=== PATIENT | female | born 1945 | race Caucasian/White ===

== ENCOUNTER 2017-12-23 11:50 | Emergency (ER) | payer MEDICARE, OTHER ==
[2017-12-23 12:10] VITALS: BP 135/78
--- NOTE | 2017-12-23 12:50 | XRAY Report ---
EXAM: RIGHT KNEE RADIOGRAPHY EXAM DATE: 12/23/2017 12:22 PM. CLINICAL HISTORY: Fall, right knee pain, swelling, ecchymosis. COMPARISON: None. TECHNIQUE: 4 views. FINDINGS: Bones: Oblique lucency through the lower portion of the patella. No other osseous abnormalities. Joints: Large right knee effusion. Mild narrowing of the medial and patellofemoral compartment. Soft Tissues: Soft tissue swelling anterior to the patella. IMPRESSION: 1. Oblique incomplete lucency involving the inferior right patella concerning for nondisplaced fractu re. Consider further detail with CT. 2. Large right knee effusion. 3. Prepatellar soft tissue edema. [facility] Referring Provider Line: [phone] SITE ID: [id number]
--- NOTE | 2017-12-23 13:02 | ED Physician Documentation ---
PD HPI LOWER EXT INJURY - Stated complaint Stated Complaint: GLF - Chief complaint Chief Complaint: Ext Problem - History obtained from History obtained from: Patient - History of Present Illness PD HPI LOW EXT INJURY LOCATION: Right, Knee Type of injury: Fall Where injury occurred: Home Timing - onset: Today (She was feeding a stray cat and tripped and fell forward onto her knee. No other significant injuries. She is unable to walk or bear weight and has anterior right knee pain. She declines pain medication on initial evaluation.) Review of Systems Ears: reports: Reviewed and negative Nose: reports: Reviewed and negative Cardiac: reports: Reviewed and negative Respiratory: reports: Reviewed and negative PD PAST MEDICAL HISTORY - Past Medical History Cardiovascular: Hypertension - Past Surgical History Past Surgical History: Yes General: Appendectomy HEENT: Cataracts - Present Medications Home Medications: Ambulatory Orders Medication Instructions Recorded Confirmed Lisinopril 40 mg PO DAILY 07/20/15 07/20/15 Metoprolol Tartrate 100 mg PO DAILY 07/20/15 07/20/15 amLODIPine [Norvasc] 5 mg PO DAILY 07/20/15 07/20/15 - Allergies Allergies/Adverse Reactions: Allergies Allergy/AdvReac Type Severity Reaction Status Date / Time No Known Drug Allergies Allergy Verified 07/20/15 15:26 - Social History Does the pt smoke?: No Smoking Status: Never smoker Does the pt drink ETOH?: No Does the pt have substance abuse?: No - Immunizations Immunizations are current?: No - POLST Patient has POLST: No PD ED PE NORMAL - Vitals Vital signs reviewed: Yes - General General: Alert and oriented X 3, No acute distress - HEENT HEENT: PERRL, EOMI - Neck Neck: Supple, no meningeal sign, No bony TTP - Extremities Extremities: Other (There is a large ecchymosis over the anterior right knee with tenderness and swelling. She is able to fully extend the knee with good strength so the quadricep function is normal.) - Neuro Neuro: Alert and oriented X 3, Normal speech - Psych Psych: Normal mood, Normal affect Results - Vitals Vitals: Vital Signs - 24 hr 12/23/17 12:05 Temperature 36.5 C Heart Rate 70 Respiratory 16 Rate Blood Pressure 135/78 H O2 Saturation 97 Oxygen O2 Source Room air - Rads (name of study) R knee 4v Radiology: EMP read contemporaneously (There is an oblique incomplete lucency involving the inferior right patella concerning for a nondisplaced fracture and a large knee effusion and prepatellar soft tissue edema.) CT RLE Knee Radiology: EMP read contemporaneously (Nondisplaced fracture of the inferior patellar with moderate effusion and hematoma.) Departure - Departure Disposition: 01 Home, Self Care Clinical Impression: Right patella fracture Qualifiers: Encounter type: initial encounter Fracture type: closed Fracture morphology: transverse Fracture alignment: nondisplaced Qualified Code(s): S82.034A - Nondisplaced transverse fracture of right patella, initial encounter for closed fracture Condition: Good Record reviewed to determine appropriate education?: Yes Instructions: ED Fx Patella Comments: Wear the splint at all times until advised it is safe to discontinue this by the orthopedic physician. Call tomorrow for an appointment. Return if worse. Tylenol as needed for pain. Your blood pressure was elevated today on check into the emergency department. This does not mean that you have hypertension, it is a common phenomenon to come to the emergency department and have elevated blood pressure. I recommend that you see your primary care physician within the week to have it rechecked when you are feeling better.
--- NOTE | 2017-12-23 14:09 | CT Preliminary Report ---
Exam: CT LOWER EXTREMITY RIGHT W/O IMPRESSION: 1. Nondisplaced fracture of the inferior patella. 2. Moderate knee effusion. 3. Prepatellar hemorrhage/hematoma. [facility] SITE ID: [id number]
--- NOTE | 2017-12-23 14:09 | CT Report ---
EXAM: RIGHT HIP CT WITHOUT CONTRAST EXAM DATE: 12/23/2017 01:41 PM. CLINICAL HISTORY: Fall, knee injury COMPARISON: 12/23/2017 radiograph. TECHNIQUE: Thin-section axial images were acquired of the hip without contrast. Post-processing: Nicci nal and sagittal reformats. Other: None. In accordance with CT protocol optimization, one or more of the following dose reduction techniques w ere utilized for this exam: automated exposure control, adjustment of mA and/or KV based on patient s ize, or use of iterative reconstructive technique. FINDINGS: Bones: The inferior patella has a nondisplaced fracture both immediately and laterally. The fracture involves roughly the inferior 6 mm of the bone on both sides. Joints: A moderate knee effusion is present. Musculature: Normal. No fatty atrophy. Other: Arterial calcifications indicate atherosclerosis. Prepatellar hemorrhage is seen and there is a more concentrated hematoma in the medial side of the knee that measures 1.7 x 2.4 x 2.0 cm. IMPRESSION: 1. Nondisplaced fracture of the inferior patella. 2. Moderate knee effusion. 3. Prepatellar hemorrhage/hematoma. [facility] Referring Provider Line: [phone] SITE ID: [id number]
== END 2017-12-23 14:22 | disposition home or self-care (01) ==
LOC: ED 11:50
DX: S82.034A Nondisplaced transverse fracture of right patella, initial encounter for closed fracture (principal); M25.461 Effusion, right knee; W01.0XXA Fall on same level from slipping, tripping and stumbling without subsequent striking against object, initial encounter; Y92.009 Unspecified place in unspecified non-institutional (private) residence as the place of occurrence of the external cause; I10 Essential (primary) hypertension
CPT/HCPCS: 29530; 99282; 99283

== ENCOUNTER 2021-09-23 09:22 | Outpatient (CLI) | payer MEDICARE, OTHER ==
--- NOTE | 2021-10-02 07:03 | Mammography Report ---
BILATERAL DIGITAL SCREENING MAMMOGRAM 3D/2D: 09/23/2021 CLINICAL: Routine screening. Comparison is made to exams dated: 05/26/2019 mammogram, 05/25/2018 ultrasound, 05/25/2018 mammogram , 04/27/2018 mammogram, 01/11/2015 mammogram, and 09/22/2011 mammogram - [facility]. The tissue of both breasts is heterogeneously dense. This may lower the sensitivity of mammography. No significant masses, calcifications, or other findings are seen in either breast. There has been no significant interval change. IMPRESSION: NEGATIVE There is no mammographic evidence of malignancy. A 1 year screening mammogram is recommended. This exam was interpreted at Station ID: [id number]. NOTE: For mammograms, a report in lay terms will be sent to the patient. Approximately 15% of breast malignancies will not be visualized mammographically. In the management of a palpable breast mass, a negative mammogram must not discourage biopsy of a clinically suspicious lesion. Electronically Signed By: Blair Smith acr/penrad:10/01/2021 08:49:32 ACR BI-RADS Category 1: Negative [id number] PARENCHYMAL PATTERN: (D) - The breast(s) demonstrate(s) heterogeneously dense fibroglandular parlazarus bo. BI-RADS CATEGORY: (1) - 1 RECOMMENDATION: (ANNUAL) - Recommend routine annual screening mammography. [id number] 1 year screening LATERALITY: (B)
== END 2021-09-23 09:23 | disposition home or self-care (01) ==
LOC: DI.N 09:22
DX: Z12.31 Encounter for screening mammogram for malignant neoplasm of breast (principal)

== ENCOUNTER 2022-10-31 07:58 | Outpatient (CLI) | payer MEDICARE, OTHER ==
--- NOTE | 2022-10-31 10:19 | DEXA Report ---
PROCEDURE: Dexa Spine and/or Hip INDICATIONS: POSTMENOPAUSAL TECHNIQUE: Dual energy x-ray absorptiometry (DXA) was performed on a [employer] System. Regions measur ed are the AP Spine, femoral neck, and if needed forearm. COMPARISON: None. FINDINGS: Lumbar Spine: Bone Mineral Density 1.273 g/cm/cm,T score 0.8, normal Right Femoral Neck: Bone Mineral Density 0.873 g/cm/cm, T score -1.2, osteopenia Right Hip: Bone Mineral Density 0.749 g/cm/cm,T score -2.0, osteopenia (T score greater or equal to -1.0: NORMAL) (T score from -1.1 to -2.4: OSTEOPENIA) (T score less than or equal to -2.5 to: OSTEOPOROSIS) Impression: Bone mineral density within the osteopenia range at the right hip and right femoral neck. Patients with diagnosis of osteoporosis or osteopenia should have regular bone mineral density assess ment. For those eligible for Medicare, routine testing is allowed once every 2 years. Testing frequ ency can be increased for patients who have rapidly progressing disease or for those who are receivin g medical therapy to restore bone mass. Reviewed by: Kan Kim MD on 10/31/2022 10:18 AM PDT Approved by: Kan Kim MD on 10/31/2022 10:18 AM PDT Station ID: [id number]
== END 2022-10-31 07:59 | disposition home or self-care (01) ==
LOC: DI 07:58
PROVIDERS: ATTEND Internal Medicine
DX: M85.89 Other specified disorders of bone density and structure, multiple sites (principal); Z78.0 Asymptomatic menopausal state

== ENCOUNTER 2023-12-23 07:15 | Outpatient (CLI) | payer MEDICARE, OTHER ==
[2023-12-23 12:29] LABS: BASOPHILS # (AUTO) 0.1 10^3/uL (0.0-0.1); BASOPHILS % (AUTO) 1.1 %; EOSINOPHILS # (AUTO) 0.2 10^3/uL (0.0-0.7); EOSINOPHILS % (AUTO) 3.5 %; HCT - HEMATOCRIT 36.4 % (37.0-47.0); HGB - HEMOGLOBIN 11.7 g/dL (12.0-16.0); LYMPHOCYTES % (AUTO) 17.7 %; MEAN CORPUSCULAR HEMOGLOBIN 29.5 pg (27.0-31.0); MEAN CORPUSCULAR HGB CONC 32.1 g/dL (32.0-36.0); MEAN CORPUSCULAR VOLUME 91.9 fL (81.0-99.0); MEAN PLATELET VOLUME 11.7 fL (7.9-10.8); MONOCYTES # (AUTO) 0.5 10^3/uL (0.0-1.0); MONOCYTES % (AUTO) 8.9 %; NEUTROPHILS # (AUTO) 3.9 10^3/uL (1.5-6.6); NEUTROPHILS % (AUTO) 68.4 %; PLT - PLATELET COUNT 238 10^3/uL (130-450); RED BLOOD COUNT 3.96 10^6/uL (4.20-5.40); RED CELL DISTRIBUTION WIDTH 14.1 % (12.0-15.0); WHITE BLOOD COUNT 5.7 x10^3/uL (4.8-10.8)
[2023-12-23 12:53] LABS: ALBUMIN 4.3 g/dL (3.2-5.5); ALBUMIN/GLOBULIN RATIO 1.3 (1.0-2.2); BILIRUBIN,TOTAL 0.5 mg/dL (0.2-1.0); CALCIUM 10.1 mg/dL (8.5-10.3); POTASSIUM 3.6 mmol/L (3.5-4.5); TOTAL PROTEIN 7.5 g/dL (6.4-8.9)
== END 2023-12-23 07:30 | disposition home or self-care (01) ==
LOC: LAB.N 07:15
PROVIDERS: ATTEND Physician Assistant Medical
DX: R10.32 Left lower quadrant pain (principal)
CPT/HCPCS: 36415; 80053; 83690; 85025; 87086

== ENCOUNTER 2023-12-23 07:30 | Outpatient (CLI) | payer MEDICARE, OTHER ==
--- NOTE | 2023-12-24 07:40 | XRAY Report ---
PROCEDURE: Abdomen 1 V INDICATIONS: ABDOMINAL PAIN, LLQ TECHNIQUE: 1 view of the abdomen were acquired. COMPARISON: None. FINDINGS: Surgical changes and devices: None. Bowel: No pneumoperitoneum. The bowel gas pattern is normal. Stool load within normal limits. Soft tissues: No masses; visualized solid organ contours appear normal in size. No suspicious abdom inal calcifications. Bones: No suspicious bony abnormalities. Bilateral hip arthritic changes particularly on the right. Femoral neck screw in good position on the left. IMPRESSION: Nonobstructive bowel gas pattern Reviewed by: Karlos Gusman MD on 12/24/2023 6:39 AM KILO Approved by: Karlos Gusman MD on 12/24/2023 6:39 AM [id number] Station ID: [id number]
== END 2023-12-23 07:45 | disposition home or self-care (01) ==
LOC: DI.N 07:30
PROVIDERS: ATTEND Physician Assistant Medical
DX: R10.32 Left lower quadrant pain (principal)

== ENCOUNTER 2023-12-24 14:37 | Outpatient (CLI) | payer MEDICARE ==
[2023-12-24] MEDS ORDERED: iohexoL-300 100 ML VIAL ONE (14:41)
[2023-12-24] MEDS ORDERED: DIATRIZOATE MEGLU/DIATRIZO SOD 30 ML BOTTLE PO ONE (14:41)
[2023-12-24] MEDS: DIATRIZOATE MEGLU/DIATRIZO SOD 30 ML BOTTLE PO ONE (16:23)
[2023-12-24] MEDS: iohexoL-300 100 ML VIAL IVP ONE (16:23)
--- NOTE | 2023-12-24 16:59 | CT Report ---
PROCEDURE: Abdomen/Pelvis W INDICATIONS: LLQ ABDOMINAL PAIN CONTRAST: 100ml [id number] TECHNIQUE: After the administration of intravenous contrast, a CT scan of the abdomen and pelvis was performed. Images were recorded and evaluated at appropriate window settings. Reformats: coronal and sagittal. F or radiation dose reduction, the following was used: automated exposure control, adjustment of mA and /or kV according to patient size. COMPARISON: None. FINDINGS: Image quality: Diagnostic. Lower chest: Dependent atelectasis. Liver: No solid mass. Hepatic steatosis Gallbladder: No radiopaque stones or wall thickening. Biliary tree: No intrahepatic or extrahepatic dilation, accounting for age. Spleen: No splenomegaly. Pancreas: No pancreatic ductal dilation. Adrenals: No adrenal nodule. Kidneys and ureters: Nonobstructing 2 mm right superior pole calculus. No hydronephrosis. No renal cy stic lesion which requires follow up. No solid mass. Stomach, bowel and peritoneum: No gastric or small bowel dilation. No abnormal wall thickening. No pa thologic free fluid. Lymph nodes: No central or retroperitoneal adenopathy. Vessels: No infrarenal aortic aneurysm. Patent portal vein. PELVIS Reproductive organs: Unremarkable. Bladder: No abnormal wall thickening, accounting for underdistention. Pelvic lymph nodes: No pelvic adenopathy by size criteria. Bones: No aggressive osseous abnormality. Partially visualized left hip intramedullary fixation. Other: No significant ventral or inguinal hernia. IMPRESSION: Right superior pole nonobstructing 2 mm calculus. No hydronephrosis. No other acute abdominopelvic findings to explain patient's symptoms. Reviewed by: Anabella Valdivia MD, PhD on 12/24/2023 4:57 PM PDT Approved by: Anabella Valdivia MD, PhD on 12/24/2023 4:57 PM PDT Station ID: [id number]
== END 2023-12-24 14:38 | disposition home or self-care (01) ==
LOC: DI 14:37
PROVIDERS: ATTEND Physician Assistant Medical
DX: N20.0 Calculus of kidney (principal)
CPT/HCPCS: 74177; Q9963; Q9967